=== PATIENT | male | born 1975 | race Caucasian/White ===

== ENCOUNTER 2020-05-17 17:18 | Emergency (ER) | payer SELFPAY ==
[~2020-05-17] VITALS: Ht 175.3 cm; Wt 93.2 kg
[2020-05-17 17:28] VITALS: BP 123/84; Ht 175.3 cm; Wt 93.2 kg
[2020-05-17] MEDS ORDERED: ZANAFLEX4 MG PO (18:25)
[2020-05-17] MEDS ORDERED: DICLOFENAC SODI50 MG PO (18:25)
== END 2020-05-17 18:30 | disposition home or self-care (01) ==
LOC: D.ER 17:18
DX: S16.1XXA Strain of muscle, fascia and tendon at neck level, initial encounter (principal); S50.02XA Contusion of left elbow, initial encounter; M50.30 Other cervical disc degeneration, unspecified cervical region; W18.30XA Fall on same level, unspecified, initial encounter; Y93.9 Activity, unspecified; Y92.9 Unspecified place or not applicable; M25.522 Pain in left elbow